=== PATIENT | female | born 1975 | race Caucasian/White ===

== ENCOUNTER 2019-03-24 23:36 | Emergency (ER) | payer OTHER ==
[~2019-03-24] VITALS: Ht 165.1 cm; Wt 62.6 kg
[~2019-03-24 23:36] MED LIST: ACEBUTCAFT PO; CYCL10 PO; HYDACE5 PO; IBUP800 PO; PROC10 PO
== END 2019-03-25 00:34 | disposition home or self-care (01) ==
LOC: ER 23:36
DX: S93.401A Sprain of unspecified ligament of right ankle, initial encounter (principal); X50.9XXA Other and unspecified overexertion or strenuous movements or postures, initial encounter
CPT/HCPCS: 29515; 73610; 73630; 99283-25; A9270

== ENCOUNTER 2019-06-19 09:56 | Emergency (ER) | payer OTHER ==
[~2019-06-19] VITALS: Ht 165.1 cm; Wt 61.2 kg
[2019-06-19] MEDS ORDERED: Esgic Tablet1 EACH PO (12:39)
[2019-06-19] MEDS ORDERED: PROM25 PO (12:39)
== END 2019-06-19 12:58 | disposition home or self-care (01) ==
LOC: ER 09:56
DX: G43.909 Migraine, unspecified, not intractable, without status migrainosus (principal)
CPT/HCPCS: 36415; 96361; 96372-59; 96374; 96375; 99283-25; J1200; J1885; J2550; J3030; J7030

== ENCOUNTER → 2021-12-13 | Outpatient (CLI) | payer OTHER ==
[~2021-12-13] MED LIST changes: +Esgic Tablet1 EACH PO; +PROM25 PO
== END | disposition home or self-care (01) ==
LOC: LAB SHORT 14:44 → PLD 14:44
DX: N95.0 Postmenopausal bleeding (principal)
CPT/HCPCS: 88305

== ENCOUNTER 2022-01-02 12:45 | Emergency (ER) | payer OTHER ==
[~2022-01-02] VITALS: Ht 165.1 cm; Wt 68.0 kg
[2022-01-02 13:20] LABS: BASOPHILS ABSOLUTE AUTO 0.04 K/mm3 (0.00-0.23); BASOPHILS PERCENT AUTO 1 % (0-2); EOSINOPHILS ABSOLUTE AUTO 0.02 K/mm3 (0.00-0.68); EOSINOPHILS PERCENT AUTO 0 % (0-6); Hematocrit 42.2 % (33.0-51.0); Hemoglobin 13.9 g/dL (11.5-16.0); IMMATURE GRAN ABSOLUTE AUTO 0.02 K/mm3 (0.00-0.10); IMMATURE GRAN PERCENT AUTO 0 % (0-1); LYMPHOCYTES ABSOLUTE AUTO 1.56 K/mm3 (0.84-5.20); LYMPHOCYTES PERCENT AUTO 23 % (21-46); MONOCYTES ABSOLUTE AUTO 0.79 K/mm3 (0.16-1.47); MONOCYTES PERCENT AUTO 12 % (4-13); Mean Corpuscular HGB 29.4 pg (26.0-34.0); Mean Corpuscular HGB Conc 32.9 g/dL (31.5-36.5); Mean Corpuscular Volume 89 fL (80-100); Mean Platelet Volume 9.3 fL (9.1-12.4); NEUTROPHILS ABSOLUTE AUTO 4.36 K/mm3 (1.96-9.15); NEUTROPHILS PERCENT AUTO 64 % (41-73); Platelet Count 301 K/mm3 (150-400); RDW Coefficient Variation 12.5 % (11.7-14.2); RDW Standard Deviation 41.6 fL (35.1-46.3); Red Blood Cell Count 4.72 M/mm3 (3.80-5.20); White Blood Cell Count 6.79 K/mm3 (4.00-11.30)
[2022-01-02] MEDS ORDERED: VENL75ER (13:25)
[2022-01-02 13:54] LABS: Alanine Aminotransfer (ALT/SGP 21 U/L (12-78); Albumin, Blood 4.2 g/dL (3.4-5.0); Albumin/Globulin Ratio 1.1 (0.8-1.8); Alk Phos 67 U/L (50-136); Anion Gap 7 mmol/L (6-16); Aspartate Aminotrans (AST/SGOT 17 U/L (12-37); Bilirubin, Total 0.3 mg/dL (0.1-1.0); Blood Urea Nitrogen 11 mg/dL (8-24); Bun/Creatinine Ratio 11.9 (12.0-20.0); CO2, Blood 25 mmol/L (21-32); Calcium, Blood 9.1 mg/dL (8.5-10.1); Chloride, Blood 106 mmol/L (98-108); Creatinine, Blood 0.92 mg/dL (0.40-1.00); Globulin, Blood 3.9 g/dL (2.2-4.0); Glomerular Filtration Rate >60 (60-); Glucose, Blood 104 mg/dL (70-99); Potassium, Blood 3.5 mmol/L (3.5-5.5); Sodium, Blood 138 mmol/L (136-145); Total Protein, Blood 8.1 g/dL (6.4-8.2)
[2022-01-02 15:03] LABS: Influenza A, PCR NEGATIVE (NEGATIVE); Influenza B, PCR NEGATIVE (NEGATIVE); Resp Syncytial Virus, PCR NEGATIVE (NEGATIVE)
[2022-01-02 15:07] LABS: SARS-Cov-2 (COVID-19) PCR, MMC POSITIVE (NEGATIVE)
[2022-01-02] MEDS ORDERED: LOPE2C PO (15:13)
[2022-01-02] MEDS ORDERED: Naprosyn500 MG PO (15:13)
[2022-01-02] MEDS ORDERED: ONDA4ODT MM (15:13)
== END 2022-01-02 17:18 | disposition home or self-care (01) ==
LOC: ER 12:45
PROVIDERS: Physician Assistant
DX: U07.1 COVID-19 (principal); Z88.0 Allergy status to penicillin
CPT/HCPCS: 0241U; 36415; 71260; 80053; 84484; 85025; 93005; 93010; 96374; 99284-25; J1885; J7030; Q9967

== ENCOUNTER → 2022-10-03 | Outpatient (CLI) | payer OTHER ==
[~2022-10-03] MED LIST changes: +LOPE2C PO; +Naprosyn500 MG PO; +ONDA4ODT MM; +VENL75ER
== END | disposition home or self-care (01) ==
LOC: LAB SHORT 12:30
DX: N39.0 Urinary tract infection, site not specified (principal)
CPT/HCPCS: 87077; 87086; 87186

== ENCOUNTER → 2022-10-15 | Outpatient (CLI) | payer OTHER | LOC: LAB 07:39 → LAB SHORT 07:39 | DX: D17.22 Benign lipomatous neoplasm of skin and subcutaneous tissue of left arm (principal) | CPT/HCPCS: 88304 ==

== ENCOUNTER 2023-09-20 11:09 | Emergency (ER) | payer OTHER ==
[~2023-09-20] VITALS: Ht 165.1 cm; Wt 79.4 kg
[2023-09-20 11:13] VITALS: BP 134/82
[2023-09-20] MEDS ORDERED: DOXY100 PO (14:01)
== END 2023-09-20 14:20 | disposition home or self-care (01) ==
LOC: ER 11:09
DX: S61.151A Open bite of right thumb with damage to nail, initial encounter (principal); Z79.1 Long term (current) use of non-steroidal anti-inflammatories (NSAID); Z88.0 Allergy status to penicillin; W54.0XXA Bitten by dog, initial encounter
CPT/HCPCS: 12001; 73140; 90471; 90714; 90715; 99283-25

== ENCOUNTER → 2024-04-15 | Outpatient (CLI) | payer OTHER ==
[~2024-04-15] MED LIST changes: +DOXY100 PO; +GABA300 PO; +NARA2.5; +OMEP20ER PO; +PROG100 PO; +RIZATRIPTAN10 MG SL; +TOPI50 PO
[2024-04-15 09:00] LABS: Source, Urine Clean Catch
[2024-04-15 10:21] LABS: Bacteria Rare /hpf; Red Blood Cells, Urine Not Seen /hpf (0-2); Squamous Epithelial Cells Rare /hpf (Few); White Blood Cells, Urine 0-2 /hpf (0-5)
== END | disposition home or self-care (01) ==
LOC: LAB 08:58 → LAB SHORT 08:58
PROVIDERS: Family Medicine
DX: R10.9 Unspecified abdominal pain (principal)
CPT/HCPCS: 81015

== ENCOUNTER 2024-04-21 12:39 | Day surgery (SDC) | payer OTHER ==
[~2024-04-21] VITALS: Ht 165.1 cm; Wt 76.1 kg
[~2024-04-21 12:39] MED LIST changes: -GABA300 PO; -NARA2.5; -OMEP20ER PO; -PROG100 PO; -RIZATRIPTAN10 MG SL; -TOPI50 PO
[2024-04-21] MEDS ORDERED: Lactated Ringer's 1,000 ML IV ONE (13:15)
[2024-04-21] MEDS ORDERED: PROG100 PO (13:20)
[2024-04-21] MEDS ORDERED: TOPI50 PO (13:20)
[2024-04-21] MEDS ORDERED: NARA2.5 (13:20)
[2024-04-21] MEDS ORDERED: RIZATRIPTAN10 MG SL (13:21)
[2024-04-21] MEDS ORDERED: OMEP20ER PO (13:21)
[2024-04-21] MEDS ORDERED: GABA300 PO (13:21)
[2024-04-21] MEDS ORDERED: propofoL 20 ML IV ONE (14:01)
[2024-04-21] MEDS ORDERED: Ondansetron HCl 2 MG / ML 2ML Vial ONE (14:02)
[2024-04-21] MEDS ORDERED: Ketorolac Tromethamine 30mg Vial ONE (14:02)
[2024-04-21] MEDS ORDERED: Dexamethasone Sod Phos 10 MG/ML 1ML VIAL ONE (14:02)
--- NOTE | 2024-04-21 14:29 | NUR ---
04/21/24 1429 Fernanda Benoit 20ML CLEAR YELLOW URINE VIA STRAIGHT CATH. 20ML IRRIGATION DEFICIT.
[2024-04-21] MEDS ORDERED: FentaNYL Citrate 50 MCG/ML 2 ML Injection ONE (15:01)
[2024-04-21] MEDS ORDERED: OxyCODONE 5 mg/Acetamin 325 mg TABLET ONE (15:38)
[2024-04-21 15:46] VITALS: BP 117/76
== END 2024-04-21 16:11 | disposition home or self-care (01) ==
LOC: ORSCSDS 12:39
PROVIDERS: Obstetrics & Gynecology
PROC: 0UDB8ZX Extraction of Endometrium, Via Natural or Artificial Opening Endoscopic, Diagnostic (ICD-10-PCS; principal; 2024-04-21 13:45)
DX: N95.0 Postmenopausal bleeding (principal); R93.89 Abnormal findings on diagnostic imaging of other specified body structures; D25.9 Leiomyoma of uterus, unspecified; K21.9 Gastro-esophageal reflux disease without esophagitis; Z79.899 Other long term (current) drug therapy
CPT/HCPCS: 88305; A9270; J1100; J1885; J2405; J2704; J3010